=== PATIENT | female | born 1960 | race Caucasian/White ===

== ENCOUNTER → 2020-03-05 11:53 | Outpatient (CLI) | payer BC, SELFPAY ==
--- NOTE | ~2020-03-05 | MM_ITS ---
EXAMINATION: MM screening ana BI w ronan HISTORY: Screening mammogram TECHNIQUE: Craniocaudal and mediolateral oblique 3-D tomosynthesis images were obtained and synthetic 2-D images were generated. CAD analysis was submitted and interpreted. COMPARISON: 02/15/2019 right diagnostic mammogram and limited right breast ultrasound 02/07/2019, 01/05/2018 bilateral digital screening mammogram examinations BREAST PARENCHYMAL COMPOSITION: There are scattered areas of fibroglandular density. FINDINGS: A biopsy marker on the right breast. History of prior bilateral breast biopsies, without ma lignant findings apparently. Occasional bilateral benign calcifications. Circumscribed smooth 4 mm benign appearing density at the anterior aspect of the outer mid right [address]. There is no evidence of suspicious mass, calcification, or architectural distortion to suggest malign cecilia in either breast. There has been no suspicious interval change. IMPRESSION: 1. No mammographic evidence of malignancy. 2. Recommend routine screening mammography in one year. BI-RADS Category 2: Benign finding(s). Reviewed, dictated and finalized at location A. OGIST
--- NOTE | ~2020-03-05 | DEXA_ITS ---
Bone Density Report Name: Hiram Rodriguez Age: 59 Sex: Female Ethnicity: White Date of : 1960 Indication: postmenopausal; screening for osteoporosis; prior fracture; hysterectomy; Referring Provider: SÁNCHEZ WELLS Study: Bone densitometry was performed. Exam Date: March 05, 2020 Accession number: [id number] Bone Density: Region BMD T-score Z-score Classification AP Spine (L1-L4) 0.883 -1.5 0.0 Osteopenia Femoral Neck (Left) 0.934 0.8 2.1 Normal Total Hip (Left) 1.136 1.6 2.6 Normal Femoral Neck (Right) 0.916 0.6 1.9 Normal Total Hip (Right) 1.135 1.6 2.6 Normal Total Hip Mean 1.136 1.6 2.6 Normal World Health Organization criteria for BMD impression classify patients as: Normal (T-score at or above -1.0), Osteopenia (T-score between -1.0 and -2.5), or Osteoporosis (T-score at or below -2.5). 10-year Fracture Risk(1): Major Osteoporotic Fracture 9.2% Hip Fracture 0.1% Reported Risk Factors: [place] (), Neck BMD=0.916, BMI=37.3, previous fracture (1) FRAX(R) Version 3.08. Fracture probability calculated for an untreated patient. Fracture probability may be lower if the patient has received treatment. Previous Exams: Region Exam Age BMD T-score BMD Change BMD Change Date g/cm2 vs Baseline vs Previous AP Spine(L1-L4) 03/05/2020 59 0.883 -1.5 -0.069* -0.066* 01/07/2018 57 0.949 -0.9 -0.003 -0.003 08/27/2011 50 0.952 -0.9 Total Hip(Left) 03/05/2020 59 1.136 1.6 -0.117* -0.026 01/07/2018 57 1.162 1.8 -0.091* -0.091* 08/27/2011 50 1.253 2.5 Total Hip(Right) 03/05/2020 59 1.135 1.6 -0.117* -0.010 01/07/2018 57 1.145 1.7 -0.107* -0.107* 08/27/2011 50 1.252 2.5 *Denotes significance at 95% confidence level, LSC for AP Spine = 0.022 g/cm2, LSC for Total Hip = 0.027 g/cm2 Clinical Information Provided by Patient: Has had a low trauma fracture Has the following medical conditions: Hysterectomy Patient maximum height was 64.6 Menopause Age: 46 Drinks caffeinated beverages Onset of menses at age 12 Number of children 3 Impression: The patient has low bone mass, based on the Total Spine T-score. The patient has an estimated ten-year risk of hip fracture of 0.1% and an estimated ten-year risk of major fracture of 9.2%, based on the WHO FRAX algorithm. The patient has risk f
== END ==
PROVIDERS: Visit Provider Obstetrics & Gynecology
DX: Z12.31 Encounter for screening mammogram for malignant neoplasm of breast (principal); Z78.0 Asymptomatic menopausal state; M85.88 Other specified disorders of bone density and structure, other site
CPT/HCPCS: 77063; 77067; 77080

== ENCOUNTER → 2021-06-03 12:04 | Outpatient (CLI) | payer BC, SELFPAY ==
--- NOTE | ~2021-06-03 | MM_ITS ---
EXAMINATION: MM screening [facility] BI w ronan HISTORY: ...... TECHNIQUE: Craniocaudal and mediolateral oblique 3-D tomosynthesis images were obtained and synthetic 2-D images were generated. CAD analysis was submitted and interpreted. COMPARISON: No prior mammogram is available for comparison at this institution. BREAST PARENCHYMAL COMPOSITION: There are scattered areas of fibroglandular density. FINDINGS: There is a biopsy marker on the right; history of prior benign right breast biopsy. Scattered occasional bilateral benign calcifications. Circumscribed 5 mm low-density opacity is noted anteriorly in the upper outer right breast, benign in appearance, not definitely changed since 03/05/2020. There is no evidence of suspicious mass, calcification, or architectural distortion to suggest malign cecilia in either breast. There has been no suspicious interval change. IMPRESSION: 1. No mammographic evidence of malignancy. 2. Recommend routine screening mammography in one year. BI-RADS Category 2: Benign finding(s). Reviewed, dictated and finalized at location A.
== END ==
PROVIDERS: PCP Family Medicine; Visit Provider Obstetrics & Gynecology
DX: Z12.31 Encounter for screening mammogram for malignant neoplasm of breast (principal)
CPT/HCPCS: 77063; 77067

== ENCOUNTER → 2022-07-21 10:53 | Outpatient (CLI) | payer BC, SELFPAY ==
--- NOTE | ~2022-07-21 | MM_ITS ---
EXAMINATION: MM screening ana BI w ronan HISTORY: Screening mammogram, family history of breast cancer in her mother. TECHNIQUE: Craniocaudal and mediolateral oblique 3-D tomosynthesis images were obtained and synthetic 2-D images were generated. CAD analysis was submitted and interpreted. COMPARISON: 06/03/2021, 03/05/2020, 02/15/2019, 02/07/2019 BREAST PARENCHYMAL COMPOSITION: There are scattered areas of fibroglandular density. FINDINGS: Scattered benign-appearing calcifications are present. No suspicious mass, calcification, o r architectural distortion are identified in either breast to suggest malignancy. There has been no s uspicious interval change. IMPRESSION: 1. No mammographic evidence of malignancy. 2. Recommend routine screening mammography in one year. BI-RADS Category 2: Benign finding(s). Reviewed, dictated and finalized at location A.
--- NOTE | ~2022-07-21 | DEXA_ITS ---
Bone Density Report Name: ESTELLA WANG Age: 61 Sex: Female Ethnicity: White Date of : 1960 Indication: osteopenia; parental hip fracture; hysterectomy; postmenopausal Referring Provider: SÁNCHEZ WELLS Study: Bone densitometry was performed. Exam Date: July 21, 2022 Accession number: [id number] Bone Density: Region BMD T-score Z-score Classification AP Spine (L1-L4) 0.920 -1.2 0.5 Osteopenia Femoral Neck (Left) 0.919 0.6 2.1 Normal Total Hip (Left) 1.146 1.7 2.8 Normal Femoral Neck (Right) 0.975 1.1 2.6 Normal Total Hip (Right) 1.119 1.5 2.6 Normal Total Hip Mean 1.133 1.6 2.7 Normal World Health Organization criteria for BMD impression classify patients as: Normal (T-score at or above -1.0), Osteopenia (T-score between -1.0 and -2.5), or Osteoporosis (T-score at or below -2.5). 10-year Fracture Risk(1): Major Osteoporotic Fracture 11% Hip Fracture 0.1% Reported Risk Factors: [place] (), Neck BMD=0.919, BMI=36.8, parental fracture (1) FRAX(R) Version 3.08. Fracture probability calculated for an untreated patient. Fracture probability may be lower if the patient has received treatment. Previous Exams: Region Exam Age BMD T-score BMD Change BMD Change Date g/cm2 vs Baseline vs Previous AP Spine(L1-L4) 07/21/2022 61 0.920 -1.2 -0.032* 0.037* 03/05/2020 59 0.883 -1.5 -0.069* -0.066* 01/07/2018 57 0.949 -0.9 -0.003 -0.003 08/27/2011 50 0.952 -0.9 Total Hip(Left) 07/21/2022 61 1.146 1.7 -0.107* 0.010 03/05/2020 59 1.136 1.6 -0.117* -0.026 01/07/2018 57 1.162 1.8 -0.091* -0.091* 08/27/2011 50 1.253 2.5 Total Hip(Right) 07/21/2022 61 1.119 1.5 -0.133* -0.016 03/05/2020 59 1.135 1.6 -0.117* -0.010 01/07/2018 57 1.145 1.7 -0.107* -0.107* 08/27/2011 50 1.252 2.5 *Denotes significance at 95% confidence level, LSC for AP Spine = 0.022 g/cm2, LSC for Total Hip = 0.027 g/cm2 Clinical Information Provided by Patient: Parent has had a hip fracture Has used the following medications: Vitamin D Has the following medical conditions: Hysterectomy Patient maximum height was 64.6 Menopause Age: 46 Drinks caffeinated beverages Onset of menses at age 12 Number of children 3 Impression: The patient has low bone m
== END ==
PROVIDERS: Visit Provider Obstetrics & Gynecology
DX: Z12.31 Encounter for screening mammogram for malignant neoplasm of breast (principal); Z78.0 Asymptomatic menopausal state; M85.88 Other specified disorders of bone density and structure, other site
CPT/HCPCS: 77063; 77067; 77080